=== PATIENT | male | born 1985 | race Two or more races ===

== ENCOUNTER 2023-02-05 12:13 | Emergency (ER) | payer OTHER, SELFPAY ==
[2023-02-05 12:26] VITALS: BP 165/80; BP 173/109; PULSE 78; PULSE 82; RESP 16; TEMP 36.7; O2SAT 100; O2SAT 99; BMI 32.3
[2023-02-05] MEDS: Ondansetron ODT 4 MG TAB.RAPDIS TRANSLINGU ×2 (12:42→16:28)
--- NOTE | 2023-02-05 12:45 | PC.NURSE ---
pt medicated per MAR
[2023-02-05 13:00] LABS: COVID-19 Test Negative (Negative); IDNOW Serial# 58CA691E
[2023-02-05 13:13] LABS: IDNOW Serial# BCCEAD1C; Influenza A Negative (Negative); Influenza B2 Negative (Negative)
--- NOTE | 2023-02-05 13:20 | ED_ITS ---
HPI - Abdominal Pain General Chief Complaint: Abdominal Pain Stated Complaint: ABD PAIN,NAUSEA,VOMITING PER EMS Time Seen by Provider: 02/05/23 12:27 Source: patient and pier hand helper Mode of arrival: EMS History of Present Illness HPI narrative: 37-year-old male who presents with having eaten a lot of food last night and then states that this morning he woke up with nausea and vomiting and not feeling well, he reports snorting fentanyl yesterday and using a bag of heroin today both by snorting. He otherwise denies fevers or chills and denies any dysuria. Patient denies any SI or HI and declines any detox at this time. Related Data Allergies Allergy/AdvReac Type Severity Reaction Status Date / Time aspirin [ASA] Allergy Itching Verified 02/05/23 12:34 Review of Systems Review of Systems Pertinent positives and negatives as stated in HPI PMFSH Past Medical History Source: nursing notes reviewed Social History Social History Unable to assess alcohol history related to: Unable to respond Use of substances other than those prescribed or required for medical reasons: Unable to respond Advance Directives: No Physical Exam ED Vital Signs: Vital Signs - 24 hr 02/05/23 12:26 Temperature 98.1 F Pulse Rate 78 Respiratory Rate 16 Blood Pressure 165/80 H Pulse Oximetry 99 Oxygen Delivery Method Room Air BMI result Body Mass Index 32.3 VITAL SIGNS: Reviewed. GENERAL: Well developed, well nourished, in no acute distress. HEAD: Normocephalic/atraumatic EYES: PERRLA, EOMI EARS: Ext canals without abnormality, TMs non-bulging and non-erythematous NOSE: Nares patent bilateral OROPHARYNX: no oral lesions noted, posterior pharynx clear and non-erythematous without noted tonsillar enlargement/erythema/exudates NECK: Supple, no adenopathy LUNGS: Normal breath sounds. No adventitious sounds or accessory muscle use. SpO2<99> CARDIOVASCULAR: Regular rate and rhythm without noted murmurs ABDOMEN: Soft, non-tender, non-distended with bowel sounds. MUSCULOSKELETAL: No tenderness, deformities, or effusions noted on gross inspection. EXTREMITIES: No cyanosis, clubbing or edema. SKIN: Inspection of the skin reveals no rashes NEUROLOGIC: Alert and oriented x 4. Strength and sensation to light touch were grossly intact x 4. Medical Decision Making Medical Decision Making [facility] Narrative: 37-year-old male with history and clinical presentation, DDX: Viral syndrome, no clinical suspicion or cholecystitis/pancreatitis. I reviewed all investigations and COVID-19 and influenza are negative. Patient does not wish to provide urinalysis, he was provided with Tylenol and Zofran and his had oral intake without nausea or vomiting. On re-evaluation patient reports he is feeling much better now has otherwise discharged home in stable condition. He was discharged with home Narcan. Differential Diagnosis Differential Diagnoses: The differential diagnosis associated with the presentation includes Please see the discussion above Admission/Observation Consideration of admission/observation: Escalation of care including admission/observation considered Please see the discussion above Lab Data [facility] Lab Attestation statement: I reviewed the patient's lab results. Please see the discussion above Labs: Lab Results 02/05/23 Range/Units 12:42 COVID-19 (FREIDA) Negative (Negative) COVID-19 Clin Com See Note Influenza Type A (SULEMA) Negative (Negative) Influenza Type B (SULEMA) Negative (Negative) Influenza A & B Note See Note Medications Administered Discontinued Medications Generic Name Dose Route Start Last Admin Trade Name Freq PRN Reason Stop Dose Admin Acetaminophen 975 mg 02/05/23 13:29 02/05/23 14:09 Acetaminophen 325 Mg Tablet PO 02/05/23 13:30 975 mg ONCE ONE Administration Ondansetron HCl 4 mg 02/05/23 12:28 02/05/23 12:42 Ondansetron Odt 4 Mg Tab.Rapdis TRANSLINGU 02/05/23 12:29 4 mg ONCE ONE Administration Discharge Plan Discharge Clinical Impression: Viral syndrome, Polysubstance use disorder Patient Disposition: Home, Self-Care Instructions: Viral Syndrome (ED), Polysubstance Abuse (ED) Additional Instructions: 1. Reanudar todos los medicamentos caseros seg?n lo recetado. Regrese a la adis de emergencias si los s?ntomas empeoran. 1. Resume all home medications as prescribed. Return to the ER for any worsening symptoms. Print Language: Korean
--- NOTE | 2023-02-05 13:23 | PC.NURSE ---
pt tolerating po fluids. Dr. manley
[2023-02-05] MEDS: Acetaminophen 325 MG TABLET 975 MG PO (14:09)
--- NOTE | 2023-02-05 14:11 | PC.NURSE ---
pt medicated per, tolerating po fluids
[2023-02-05 16:00] VITALS: BP 125/77; PULSE 78; RESP 16; TEMP 37; O2SAT 98
[2023-02-05] MEDS: Naloxone HCl Nasal TAKE HOME 4 MG SPRAY 8 MG NOSTRILALT (16:28)
== END 2023-02-05 16:35 | disposition home or self-care (01) ==
PROVIDERS: Emergency Provider Student in an Organized Health Care Education/Training Program
DX: B34.9 Viral infection, unspecified (principal); F19.90 Other psychoactive substance use, unspecified, uncomplicated; Z11.52 Encounter for screening for COVID-19
CPT/HCPCS: 87502; 87635; 99283; 99284

== ENCOUNTER 2024-05-08 16:19 | Emergency (ER) | payer OTHER, SELFPAY ==
--- NOTE | 2024-05-08 16:22 | ECG_ITS ---
Test Reason : CP Blood Pressure : */* mmHG Vent. Rate : 89 BPM Atrial Rate : 89 BPM P-R Int : 130 ms QRS Dur : 86 ms QT Int : 372 ms P-R-T Axes : 39 22 37 degrees QTcB Int : 452 ms Normal sinus rhythm Normal ECG No previous ECGs available Referred By: Generic ED Physician Electronically Signed By: MAURA CHENG MD
[2024-05-08 16:26] VITALS: BP 106/65; BP 128/76; PULSE 92; PULSE 93; RESP 16; TEMP 37; O2SAT 98; O2SAT 99; BMI 34.2
--- NOTE | 2024-05-08 16:40 | PC.NURSE ---
Pt coming from PD, while awaiting bail inventory clerk to arrive when he was in a call he started to panic, complaints of SOB/CP. Pd at bedside reporting they were question cocaine as he was surrounded by [employer]. Pt not denying. Pt now denies any CP/SOB. Refusing to let staff do any patient care. Pt alerted he needed to let us do at least an EKG and vitals.
--- NOTE | 2024-05-08 17:12 | ED_ITS ---
HPI - Chest Pain General Chief Complaint: Chest Pain Stated Complaint: chest pain in pd custody, drug use Time Seen by Provider: 05/08/24 17:06 Source: patient, EMS and police Mode of arrival: EMS Limitations: no limitations History of Present Illness ED Provider: Dr. Veronika Mejia HPI narrative: Patient comes to the emergency room via ambulance and in police custody. Patient reports that earlier today he had an argument with his , PD was called. Patient took him to the station. Patient denies any incidences of physical assault. Patient states that he is claustrophobic, being in the cell patient started becoming more anxious, had a panic attack and chest pain. The patient admits to using cocaine. Patient states that this time he feels better, has no chest pain shortness of breath or anxiety. Related Data Allergies Allergy/AdvReac Type Severity Reaction Status Date / Time aspirin [ASA] Allergy Itching Verified 05/08/24 16:31 Review of Systems Review of Systems: Constitutional : No Weight loss, No Fever, No Chills, No Night Sweats, No Fatigue, No Malaise ENT/Mouth : No Hearing loss, No Ear Pain, No Nasal Congestion, No Sinus Pain, No Hoarseness, No sore throat, No Rhinorrhea, No Swallowing Difficulty Eyes: No Eye Pain, No Swelling, No Redness, No Foreign Body, No Discharge, No Vision Changes Cardiovascular : Complaining of chest pain during panic attack, resolved at this time. No SOB, No Dyspnea on Exertion, No Orthopnea, No Edema, No Palpitations Respiratory : No Cough, No Sputum, No Wheezing, No Smoke Exposure, No Dyspnea Gastrointestinal : No Nausea, No Vomiting, No Diarrhea, No Constipation, No ab dominal Pain, No Hematochezia, No Melena Genitourinary : no irregular bleeding, No Dysuria, No Urinary Frequency, No Hematuria, No Urinary Incontinence, No Urgency, No Flank Pain, No Urinary Flow Changes, No Hesitancy Musculoskeletal : No joint pain, No Myalgias, No Joint Swelling Skin : No Skin Lesions, No rash Neuro : No Weakness, No Numbness, No Paresthesias, No Loss of Consciousness, No Dizziness, No Headache Psych : Admits panic attack, No Depression, No SI/HI/AH/VH, No Social Issues, Heme/Lymph: No Bruising, No Bleeding,No Lymphadenopathy Endocrine : No Polyuria, No Polydipsia, No Temperature Intolerance [facility] Social History Social History Unable to assess alcohol history related to: Unable to respond Smoked in Last 30 Days: Yes Use of substances other than those prescribed or required for medical reasons: Refusing to respond Advance Directives: No Advance Directives Information Provided: No Physical Exam Vital Signs: Vital Signs: Last Vital Signs Temp 98.6 F 05/08/24 16:26 Pulse 92 05/08/24 16:26 Resp 16 05/08/24 16:26 BP 128/76 05/08/24 16:26 Pulse Ox 98 05/08/24 16:26 O2 Del Method Room Air 05/08/24 16:26 BMI result Body Mass Index 34.2 Const: Other: Appearance: Alert. Oriented X3. No acute distress. Eyes: Pupils equal, round and reactive to light. ENT: Pharynx normal. Neck: Normal inspection. Neck supple. No lymph nodes noted. No crepitus CVS: Normal heart rate and rhythm. Pulses normal. Normal S1 and S2 Respiratory: No respiratory distress. Breath sounds normal. No Wheezing. No rales Abdomen: Soft and nontender. No rigidity. No distention. Skin: Skin warm and dry. Normal skin color. Normal skin turgor. Extremities: No lower extremity edema. No Lacerations. No Rash Neuro: Oriented X 3. No motor deficit. No sensory deficit. Moving all extremities. No slurred speech. CN 2 through 12 grossly intact Psych: calm, cooperative, normal affect Medical Decision Making Medical Decision Making [facility] Narrative: My interpretation of EKG: Normal sinus rhythm, heart rate 89, no ST segment depression or elevation, no T-wave inversion, QTC 452 Patient states that he feels well, denies any chest pain shortness of breath or anxiety, states that he does not want any further workup. Per patient's request, patient being discharged without any further workup. No concerns based on patient's electrocardiogram. Patient being discharged under police custody Discharge Plan Discharge Clinical Impression: Anxiety Patient Disposition: Home, Self-Care Instructions: Anxiety (ED) Additional Instructions: Please follow-up with your primary care physician tomorrow. If you have any worsening or new symptoms, please return to the emergency room or call 911 Print Language: Sierra Leonean
[2024-05-08 17:54] VITALS: BP 128/76; PULSE 92; RESP 16; TEMP 37; O2SAT 98
--- NOTE | 2024-05-08 17:55 | PC.NURSE ---
Refused all care, released back in PD custody.
== END 2024-05-08 17:55 | disposition home or self-care (01) ==
PROVIDERS: Emergency Provider Emergency Medicine; PCP Nurse Practitioner Family
DX: F41.9 Anxiety disorder, unspecified (principal)
CPT/HCPCS: 93005; 99283; 99284

== ENCOUNTER → 2024-05-08 16:22 | Outpatient (BNV) | payer OTHER, SELFPAY | PROVIDERS: Emergency Provider Emergency Medicine; PCP Nurse Practitioner Family; Visit Provider Internal Medicine Cardiovascular Disease | DX: R07.9 Chest pain, unspecified (principal) | CPT/HCPCS: 93010 ==

== ENCOUNTER 2024-07-16 04:41 | Emergency (ER) | payer OTHER, SELFPAY ==
[2024-07-16 04:46] VITALS: BP 152/65; PULSE 80; RESP 24; TEMP 37.1; O2SAT 97; BMI 36.9
[2024-07-16 05:11] LABS: MANUAL DIFF FLAG NO
[2024-07-16 05:12] LABS: Basophils Percent Auto 0.2 % (0-2); Eosinophils Percent Auto 0.3 % (0-4); Hematocrit 42.2 % (42.0-52.0); Hemoglobin 14.3 g/dl (14.0-18.0); Imm Gran Abs Auto 0.03 X10*3/uL (0.00-0.03); Imm Gran Pct Auto 0.5 % (0.0-0.4); Lymphocytes Absolute Auto 0.9 X10*3/uL (1.2-4.9); Lymphocytes Percent Auto 14.7 % (20-40); Mean Corpuscular HGB Conc 33.9 g/dl (31.0-36.0); Mean Corpuscular Hemoglobin 26.2 pg (27.0-33.0); Mean Corpuscular Volume 77.4 fL (80.0-98.0); Mean Platelet Volume 9.4 fL (9.4-12.4); Neutrophils Absolute Auto 3.9 x10*3/uL (2.0-8.3); Neutrophils Percent Auto 67.3 % (45-73); Platelet Count 196 X10*3/uL (160-400); Red Blood Count 5.45 X10*6/uL (4.60-5.80); Red Cell Distribution Width 14.5 % (11.0-16.0); White Blood Count 5.8 X10*3/uL (4.8-10.8)
[2024-07-16] MEDS: ondansetron HCL 4 MG/2 ML VIAL IVPUSH ×2 (05:17→08:41)
[2024-07-16 05:44] LABS: Alanine Aminotransferase 14 U/L (0-40); Albumin Level 4.5 g/dL (3.5-5.0); Alkaline Phosphatase 87 U/L (39-117); Anion Gap 17 (12-20); Aspartate Amino Transferase 21 U/L (5-37); Bilirubin Total 0.8 mg/dL (0.0-1.0); Blood Urea Nitrogen 11 mg/dL (9-16); Calcium 9.4 mg/dL (8.4-10.2); Carbon Dioxide 22 mmol/L (22-29); Chloride 104 mmol/L (96-108); Estimated Glomerular Filt Rate > 60; Glucose Random 106 mg/dL (60-115); Potassium 3.5 mmol/L (3.3-5.1); Sodium 139 mmol/L (135-145); Total Protein 7.6 g/dL (6.5-8.0)
--- NOTE | 2024-07-16 07:51 | ED.NAVMDI ---
HPI - Nausea/Vomiting/Diarrhea General Chief complaint: Nausea/Vomiting/Diarrhea Stated complaint: nauseaous Time Seen by Provider: 07/16/24 07:22 Source: patient and human factors engineer Mode of arrival: ambulatory Limitations: no limitations History of Present Illness ED Provider: HPI Narrative: Georgian-speaking patient, human factors engineer was utilized presenting with report of nausea and vomiting, smokes marijuana, did not have a diarrhea, denies abdominal pain. No chest pain or shortness of breath reported. No fevers or chills. Related Data Previous Rx's ?Medication ?Instructions ?Recorded famotidine 20 mg tablet 20 mg PO BEDTIME 30 days #30 tabs 07/16/24 ondansetron 4 mg disintegrating 4 mg PO Q8H PRN nausea and 07/16/24 tablet vomiting #4 tabs Allergies Allergy/AdvReac Type Severity Reaction Status Date / Time aspirin [ASA] Allergy Itching Verified 07/16/24 04:48 Review of Systems Constitutional: Constitutional: Reports as per [facility] Social History Social History Unable to assess alcohol history related to: Unable to respond Smoked in Last 30 Days: Yes Use of substances other than those prescribed or required for medical reasons: No Any prior treatment program specific to substance use: Yes Advance Directives: No Do you have a plan to hurt others: No Plan Physical Exam Vital Signs: Vital Signs: Last Vital Signs Temp 98.7 F 07/16/24 04:46 Pulse 80 07/16/24 04:46 Resp 24 H 07/16/24 04:46 BP 152/65 H 07/16/24 04:46 Pulse Ox 97 07/16/24 04:46 O2 Del Method Room Air 07/16/24 04:46 BMI result Body Mass Index 36.9 Const: Other: Gen: ?Overall well-appearing patient HEENT: PERRLA, EOMI, MMM, no scleral icterus Neck: Supple, no LAD CV: RRR, no obvious murmurs appreciated Resp: ?No wheezing rales rhonchi no stridor moving air well Abd: ?Bowel sounds are present, no tenderness no rebound no rigidity MSK: FROM, strength 5/5 all extremities Skin: Warm, dry, intact, no jaundice Neuro: ?Alert and oriented x3, moving upper and lower extremities symmetrically, no obvious facial asymmetry noted Medications Administered Discontinued Medications Generic Name Dose Route Start Last Admin Trade Name Darius PRN Reason Stop Dose Admin Ondansetron HCl 4 mg 07/16/24 05:07 07/16/24 05:17 Ondansetron Hcl 4 Mg/2 Ml Vial IVPUSH 07/16/24 05:08 4 mg ONCE ONE Administration Medical Decision Making Medical Decision Making [facility] Narrative: Overall well-appearing, tolerating p.o., blood work reassuring no evidence for dehydration, he is not having any chest pain or dyspnea to suspect ACS, no decreased bowel sounds to suspect SBO, and the blood work does not support my other considerations for further workup, did not feel further imaging such as ultrasound or CT of the abdomen pelvis is indicated. Anticipating discharge. Differential Diagnosis Differential Diagnoses: The differential diagnosis associated with the presentation includes Cholecystitis, pancreatitis, hepatitis, gastritis, cholangitis, choledocholithiasis, SBO, ACS Lab Data 07/16/24 05:07 07/16/24 05:26 Labs: Lab Results 07/16/24 07/16/24 Range/Units 05:07 05:26 WBC 5.8 (4.8-10.8) X10*3/uL RBC 5.45 (4.60-5.80) X10*6/uL Hgb 14.3 (14.0-18.0) g/dl Hct 42.2 (42.0-52.0) % MCV 77.4 L (80.0-98.0) fL MCH 26.2 L (27.0-33.0) pg MCHC 33.9 (31.0-36.0) g/dl RDW 14.5 (11.0-16.0) % Plt Count 196 (160-400) X10*3/uL MPV 9.4 (9.4-12.4) fL Immature Gran % (Auto) 0.5 H (0.0-0.4) % Neut % (Auto) 67.3 (45-73) % Lymph % (Auto) 14.7 L (20-40) % [place] % (Auto) 17.0 H (2-11) % Eos % (Auto) 0.3 (0-4) % Baso % (Auto) 0.2 (0-2) % Lymph # (Auto) 0.9 L (1.2-4.9) X10*3/uL [place] # (Auto) 1.0 (0.1-1.2) X10*3/uL Eos # (Auto) 0.0 (0.0-0.4) X10*3/uL Baso # (Auto) 0.0 (0.0-0.2) X10*3/uL Abs Immat Gran (auto) 0.03 (0.00-0.03) X10*3/uL Absolute Neuts (auto) 3.9 (2.0-8.3) x10*3/uL Absolute Nucleated RBC 0.000 (0.0-0.012) X10*3/uL Nucleated RBC % (auto) 0.0 (0.0-0.2) /100WBC Sodium 139 (135-145) mmol/L Potassium 3.5 (3.3-5.1) mmol/L Chloride 104 (96-108) mmol/L Carbon Dioxide 22 (22-29) mmol/L Anion Gap 17 (12-20) BUN 11 (9-16) mg/dL Creatinine 0.86 (0.5-1.4) mg/dL Estim Creat Clear Calc 140.0 Estimated GFR > 60 Random Glucose 106 (60-115) mg/dL Calcium 9.4 (8.4-10.2) mg/dL Total Bilirubin 0.8 (0.0-1.0) mg/dL AST 21 (5-37) U/L ALT 14 (0-40) U/L Alkaline Phosphatase 87 (39-117) U/L Total Protein 7.6 (6.5-8.0) g/dL Albumin 4.5 (3.5-5.0) g/dL Discharge Plan Discharge Clinical Impression: Nausea & vomiting Patient Disposition: Home, Self-Care Instructions: Acute Nausea and Vomiting (ED) Additional Instructions: Your blood work, physical examination, vital signs reassuring, take famotidine 20 mg before bedtime, and Zofran as needed for nausea and vomiting, make sure to abstain from any alcohol, spicy or fatty foods, follow up with the PCP and other issues concerns come back to the ER. Prescriptions: New famotidine 20 mg tablet 20 mg PO BEDTIME 30 Days Qty: 30 0RF ondansetron 4 mg tablet,disintegrating 4 mg PO Q8H PRN (Reason: nausea and vomiting) Qty: 4 0RF Print Language: Georgian
[2024-07-16 08:06] VITALS: BP 136/67; PULSE 83; RESP 20; TEMP 36.8; O2SAT 98
[2024-07-16 08:28] VITALS: BP 136/67; PULSE 83; RESP 20; TEMP 36.8; O2SAT 98
[2024-07-16] MEDS: Magnesium Hydrox/Alum Hydrox 30 ML ORAL.SUSP PO (08:41)
[2024-07-16] MEDS: Famotidine 20 MG TABLET PO (08:41)
== END 2024-07-16 08:54 | disposition home or self-care (01) ==
PROVIDERS: Emergency Provider Emergency Medicine; PCP Nurse Practitioner Family
DX: R11.2 Nausea with vomiting, unspecified (principal)
CPT/HCPCS: 36415; 80053; 85025; 96374; 96375; 99284; J2405

== ENCOUNTER 2024-07-18 10:20 | Emergency (ER) | payer OTHER, SELFPAY ==
--- NOTE | ~2024-07-18 | XR_ITS ---
EXAMINATION: XR CHEST 2 VIEWS HISTORY: vomiting, cough COMPARISON: There are no prior studies available for comparison. FINDINGS: PA and lateral views of the chest are submitted. The lungs are expanded and clear. There is no pleural effusion, pneumothorax, or pulmonary vascular congestion. The heart is normal in size. The bones are intact. XR/XR chest 2V IMPRESSION: Normal examination of the chest. Electronically signed by: Elliot Kumar MD 07/18/2024 12:11 PM EDT
[2024-07-18 10:32] VITALS: BP 128/90; PULSE 79; RESP 18; TEMP 36.9; O2SAT 96; BMI 38.6
--- NOTE | 2024-07-18 11:30 | ED.GENADULT ---
HPI - General Adult General Chief complaint: General Medical Stated complaint: Headache Weakness Etc Related Data Previous Rx's ?Medication ?Instructions ?Recorded famotidine 20 mg tablet 20 mg PO BEDTIME 30 days #30 tabs 07/16/24 ondansetron 4 mg disintegrating 4 mg PO Q8H PRN nausea and 07/16/24 tablet vomiting #4 tabs Allergies Allergy/AdvReac Type Severity Reaction Status Date / Time aspirin [ASA] Allergy Itching Verified 07/18/24 10:38 [facility] Social History Social History Unable to assess alcohol history related to: Unable to respond Advance Directives: No Advance Directives Information Provided: No Do you have a plan to hurt others: No Plan Physical Exam ED Vital Signs: Vital Signs - 24 hr 07/18/24 10:32 07/18/24 13:52 Temperature 98.4 F 98.4 F Pulse Rate 79 79 Respiratory Rate 18 18 Blood Pressure 128/90 H 128/90 H Pulse Oximetry 96 96 Oxygen Delivery Method Room Air Room Air BMI result Body Mass Index 38.6 Course Course Course Narrative: 07/18/24 1131 CADENCE [place] This is a Rapid Medical Examination (RME) performed by Sergio Leiva PA-C in triage. Full HPI, ROS, assessment and treatment plan per primary provider in the Main ED. Hx: 38 yo M here for eval of epigastric abd pain, N/V/D, cough, generalized weakness, dec PO intake x3 days. eval at our facility a few days ago w/ unremarkable w/u (no imaging). d/c home w/ zofran - no relief. Plan: labs, viral swabs, CXR Reevaluation(s) Reevaluation #1: Patient left the emergency department before myself or any of the other clinicians could review or explain physical exam findings, test results, need or lack there of for additional testing, treatment options, or a treatment plan. Discharge Plan Discharge Clinical Impression: Abdominal pain Patient Disposition: Left W/O Completing Treatment Prescriptions: No Action famotidine 20 mg tablet 20 mg PO BEDTIME 30 Days Qty: 30 0RF ondansetron 4 mg tablet,disintegrating 4 mg PO Q8H PRN (Reason: nausea and vomiting) Qty: 4 0RF Interventions: ED Discharge Assessment Last Done: 07/18/24 13:52 Discharge Date/Time: 07/18/24 13:52
--- OUTSIDE RECORDS SUMMARY | 2024-07-18 13:43 | XMS_ITS | Patient Health Record ---
Author Organization [facility] Address [address] [place] [address] [phone] Care Team Providers Care Soil Field Technician Name Role Phone Hieu Carmichael Primary Care Provider [phone] [facility], [facility] Unavailable [phone] Reason For Referral No Information Plan Of Treatment No Information
[2024-07-18 13:52] VITALS: BP 128/90; PULSE 79; RESP 18; TEMP 36.9; O2SAT 96
== END 2024-07-18 13:52 | disposition left against medical advice (07) ==
PROVIDERS: Emergency Provider Emergency Medicine; PCP Nurse Practitioner Family
DX: R51.9 Headache, unspecified (principal); R53.1 Weakness; R10.2 Pelvic and perineal pain
CPT/HCPCS: 71046; 99282; 99283

== ENCOUNTER → 2024-07-18 11:30 | Outpatient (BNV) | payer OTHER, SELFPAY | PROVIDERS: PCP Nurse Practitioner Family; Visit Provider Radiology Diagnostic Radiology | DX: R05.9 Cough, unspecified (principal); R11.10 Vomiting, unspecified | CPT/HCPCS: 71046 ==

== ENCOUNTER 2024-07-22 09:32 | Emergency (ER) | payer OTHER, SELFPAY ==
[2024-07-22 09:50] VITALS: BP 142/98; PULSE 91; O2SAT 98
[2024-07-22 10:00] VITALS: BP 120/70; PULSE 69; RESP 16; TEMP 36.8; O2SAT 96
--- NOTE | 2024-07-22 10:21 | ED.NAVMDI ---
HPI - Nausea/Vomiting/Diarrhea General Chief complaint: Nausea/Vomiting/Diarrhea Stated complaint: VOMITING,FROM METHADONE CLINIC,SEEN 3 DAYS AGO Time Seen by Provider: 07/22/24 09:58 Source: patient, EMS, RN notes reviewed and old records reviewed Mode of arrival: EMS History of Present Illness ED Provider: Claire Escobar PA-C HPI Narrative: 38-year-old [place] Citizen-speaking male currently on methadone, presenting to the ED, methadone clinic complaining of persistent nausea and nonbloody emesis x this morning. Patient admits he was seen and treated in our ED a few days ago for similar symptoms, prescribed antinausea medication with relief however states was only given 4 pills / ran out, & the symptoms returned. Reports increasing life stressors, states he is currently on the street. Denies SI/HI. Concerned stress/anxiety is causing symptoms. Admits he does have a therapist,but does not currently take any outpatient psychiatric medications however used to be prescribed some. Last dose methadone yesterday per patient. Denies abdominal pain, flank pain, diarrhea/constipation, dysuria/hematuria, fever. Denies EtOH or drug use Related Data Previous Rx's ?Medication ?Instructions ?Recorded famotidine 20 mg tablet 20 mg PO BEDTIME 30 days #30 tabs 07/16/24 ondansetron 4 mg disintegrating 4 mg PO Q8H PRN nausea and 07/16/24 tablet vomiting #4 tabs aluminum-mag hydroxide-simethicone 5 ml PO 5XD PRN dyspepsia #30 mL 07/22/24 200 mg-200 mg-20 mg/5 mL oral susp (Maalox Advanced) famotidine 20 mg tablet (Pepcid) 20 mg PO DAILY #14 tabs 07/22/24 ondansetron 4 mg disintegrating 4 mg PO Q8H PRN nausea and 07/22/24 tablet vomiting #10 tabs Allergies Allergy/AdvReac Type Severity Reaction Status Date / Time aspirin [ASA] Allergy Itching Verified 07/22/24 10:24 Penicillins Allergy Unknown Verified 07/22/24 10:24 Review of Systems Review of Systems: Yes all other systems are reviewed and are negative Constitutional: Constitutional: Reports as per HPI [facility] Past Medical History Attestation statement: The following information was validated with the patient. Source: old records reviewed Social History Social History Unable to assess alcohol history related to: Unable to respond Advance Directives: No Advance Directives Information Provided: No Physical Exam Vital Signs: Vital Signs: Last Vital Signs Temp 98.0 F 07/22/24 15:07 Pulse 82 07/22/24 15:07 Resp 18 07/22/24 15:07 BP 112/64 07/22/24 15:07 Pulse Ox 97 07/22/24 15:07 O2 Del Method Room Air 07/22/24 14:44 BMI result Body Mass Index 42.3 Const: General: cooperative, healthy appearing and no acute distress Orientation/consciousness: patient oriented x3 Limitations: no limitations HEENT: Head: Yes normal to inspection and Yes atraumatic Ears: hearing grossly normal bilaterally General nose exam: Normal external nose present Face and sinus: Yes normal facial exam Eyes: General: appearance normal, both eyes and all related structures EOM: EOMs intact bilaterally Neck: Neck: Yes normal visual inspection and Yes no meningeal signs Resp: Effort & Inspection: normal respiratory effort and no respiratory distress Cardio: Rate: regular rate GI: Inspection: Yes normal to inspection Palpation (GI): Soft to palpation, nontender, no guarding and not rigid Skin: Rashes: no rashes Wounds: no wounds Neuro: General: patient oriented x3, tone normal and no meningeal signs Cranial nerves: Yes CN's II-XII intact bilaterally Gait exam (Neuro): Normal gait present Extrem: General: Yes normal to inspection Course Course Course Narrative: -[id number]-- Labs reassuring. Mild elevation in AST / ALT. UA with trace ketones. - Tox screen positive for THC and methadone - patient is tolerating p.o. in the ED without any episodes of emesis since arrival. Methadone was verified, will be dose of methadone today in the ED and provided with last dose letter. Patient feels comfortable for discharge home at this time with antiemetic and close GI/ PCP follow-up Results discussed with patient including worrisome signs and symptoms and strict return precautions, and when to return to the emergency department. They verbalized understanding and feel safe for discharge at this time. Medications Administered Discontinued Medications Generic Name Dose Route Start Last Admin Trade Name Freq PRN Reason Stop Dose Admin Al Hydroxide/Mg Hydroxide 30 ml 07/22/24 14:11 07/22/24 14:57 Magnesium Hydrox/Alum Hydrox 30 Ml Oral.Susp PO 07/22/24 14:12 30 ml ONCE ONE Administration Sodium Chloride 1,000 mls @ 999 mls/hr 07/22/24 10:30 07/22/24 14:57 Ns IV 07/22/24 11:30 Infused .Q1H1M SIENNA Infusion Methadone HCl 103 mg 07/22/24 13:40 07/22/24 14:55 Methadone Hcl 20 Mg/2 Ml Oral.Conc PO 07/22/24 13:41 103 mg ONCE ONE Administration Ondansetron HCl 4 mg 07/22/24 10:16 07/22/24 11:24 Ondansetron Hcl 4 Mg/2 Ml Vial IVPUSH 07/22/24 10:17 4 mg ONCE ONE Administration Medical Decision Making Medical Decision Making [facility] Narrative: 38-year-old [place] Citizen-speaking male currently on methadone, presenting to the ED, methadone clinic complaining of persistent nausea and nonbloody emesis x this morning. On exam vital signs stable, NAD, nontoxic appearing, abdomen is soft and nontender, no CVAT. Patient was seen and treated in our ED on 07/16/2024 for similar symptoms had negative workup, prescribed Zofran outpatient, also presented on 07/18 however LWCT. Concern for anxiety/stress induced nausea/vomiting. Rule out dehydration/metabolic abnormalities. Low suspicion for acute pancreatitis/cholecystitis/lithiasis, appendicitis or diverticulitis without tenderness on exam. Lower suspicion for renal stones/pyelo or UTI. Plan: Labs, tox screen, UA, IVF, antiemetic, p.o. trial Please refer to course for remaining clinical decision making, interpretation of labs/imaging results, and discussions with consultants and/or family members. Differential Diagnosis Differential Diagnoses: The differential diagnosis associated with the presentation includes As above Admission/Observation Consideration of admission/observation: Escalation of care including admission/observation considered Lab Data [facility] Lab Attestation statement: I reviewed the patient's lab results. 07/22/24 10:41 07/22/24 10:41 Labs: Lab Results 07/22/24 07/22/24 07/22/24 Range/Units 10:41 10:41 10:41 WBC 6.8 (4.8-10.8) X10*3/uL RBC 5.35 (4.60-5.80) X10*6/uL Hgb 13.8 L (14.0-18.0) g/dl Hct 41.8 L (42.0-52.0) % MCV 78.1 L (80.0-98.0) fL MCH 25.8 L (27.0-33.0) pg MCHC 33.0 (31.0-36.0) g/dl RDW 14.1 (11.0-16.0) % Plt Count 210 (160-400) X10*3/uL MPV 8.9 L (9.4-12.4) fL Immature Gran % (Auto) 0.4 (0.0-0.4) % Neut % (Auto) 70.1 (45-73) % Lymph % (Auto) 21.0 (20-40) % [place] % (Auto) 7.5 (2-11) % Eos % (Auto) 0.7 (0-4) % Baso % (Auto) 0.3 (0-2) % Lymph # (Auto) 1.4 (1.2-4.9) X10*3/uL [place] # (Auto) 0.5 (0.1-1.2) X10*3/uL Eos # (Auto) 0.1 (0.0-0.4) X10*3/uL Baso # (Auto) 0.0 (0.0-0.2) X10*3/uL Abs Immat Gran (auto) 0.03 (0.00-0.03) X10*3/uL Absolute Neuts (auto) 4.8 (2.0-8.3) x10*3/uL Absolute Nucleated RBC 0.000 (0.0-0.012) X10*3/uL Nucleated RBC % (auto) 0.0 (0.0-0.2) /100WBC Sodium 141 (135-145) mmol/L Potassium 3.9 (3.3-5.1) mmol/L Chloride 105 (96-108) mmol/L Carbon Dioxide 28 (22-29) mmol/L Anion Gap 12 (12-20) BUN 10 (9-16) mg/dL Creatinine 0.77 (0.5-1.4) mg/dL Estim Creat Clear Calc 163.0 Estimated GFR > 60 Random Glucose 100 (60-115) mg/dL Calcium 9.5 (8.4-10.2) mg/dL Magnesium 2.1 (1.6-2.6) mg/dL Total Bilirubin 0.4 0.5 (0.0-1.0) mg/dL Direct Bilirubin 0.2 (0.0-0.5) mg/dL AST 48 H 46 H (5-37) U/L ALT 76 H (0-40) U/L Alkaline Phosphatase (39-117) U/L Total Protein (6.5-8.0) g/dL Albumin (3.5-5.0) g/dL Urine Color Urine Appearance Urine pH (5.0-9.0) Ur Specific [place] (1.005-1.025) Urine Protein (Neg-Trace) mg/dL Urine Glucose (UA) (Negative) mg/dL Urine Ketones (Negative) mg/dL Urine Blood (Negative) Urine Nitrite (Negative) Ur Leukocyte Esterase (Negative) Urine Opiates Screen (Not Detect) Ur Buprenorphine Scrn (Not Detect) ng/mL Ur Oxycodone Screen (Not Detect) ng/mL Urine Methadone Screen (Not Detect) ng/mL Urine Fentanyl Screen (Not Detect) Ur Barbiturates Screen (Not Detect) Ur Phencyclidine Scrn (Not Detect) Ur Amphetamines Screen (Not Detect) U Benzodiazepines Scrn (Not Detect) Urine Cocaine Screen (Not Detect) U Marijuana (THC) Screen (Not Detect) Ethyl Alcohol mg/dL 07/22/24 07/22/24 07/22/24 Range/Units 10:41 10:41 10:41 WBC (4.8-10.8) X10*3/uL RBC (4.60-5.80) X10*6/uL Hgb (14.0-18.0) g/dl Hct (42.0-52.0) % MCV (80.0-98.0) fL MCH (27.0-33.0) pg MCHC (31.0-36.0) g/dl RDW (11.0-16.0) % Plt Count (160-400) X10*3/uL MPV (9.4-12.4) fL Immature Gran % (Auto) (0.0-0.4) % Neut % (Auto) (45-73) % Lymph % (Auto) (20-40) % [place] % (Auto) (2-11) % Eos % (Auto) (0-4) % Baso % (Auto) (0-2) % Lymph # (Auto) (1.2-4.9) X10*3/uL [place] # (Auto) (0.1-1.2) X10*3/uL Eos # (Auto) (0.0-0.4) X10*3/uL Baso # (Auto) (0.0-0.2) X10*3/uL Abs Immat Gran (auto) (0.00-0.03) X10*3/uL Absolute Neuts (auto) (2.0-8.3) x10*3/uL Absolute Nucleated RBC (0.0-0.012) X10*3/uL Nucleated RBC % (auto) (0.0-0.2) /100WBC Sodium (135-145) mmol/L Potassium (3.3-5.1) mmol/L Chloride (96-108) mmol/L Carbon Dioxide (22-29) mmol/L Anion Gap (12-20) BUN (9-16) mg/dL Creatinine (0.5-1.4) mg/dL Estim Creat Clear Calc Estimated GFR Random Glucose (60-115) mg/dL Calcium (8.4-10.2) mg/dL Magnesium (1.6-2.6) mg/dL Total Bilirubin (0.0-1.0) mg/dL Direct Bilirubin (0.0-0.5) mg/dL AST (5-37) U/L ALT 76 H (0-40) U/L Alkaline Phosphatase 79 79 (39-117) U/L Total Protein 7.2 7.1 (6.5-8.0) g/dL Albumin 4.4 (3.5-5.0) g/dL Urine Color Urine Appearance Urine pH (5.0-9.0) Ur Specific [place] (1.005-1.025) Urine Protein (Neg-Trace) mg/dL Urine Glucose (UA) (Negative) mg/dL Urine Ketones (Negative) mg/dL Urine Blood (Negative) Urine Nitrite (Negative) Ur Leukocyte Esterase (Negative) Urine Opiates Screen (Not Detect) Ur Buprenorphine Scrn (Not Detect) ng/mL Ur Oxycodone Screen (Not Detect) ng/mL Urine Methadone Screen (Not Detect) ng/mL Urine Fentanyl Screen (Not Detect) Ur Barbiturates Screen (Not Detect) Ur Phencyclidine Scrn (Not Detect) Ur Amphetamines Screen (Not Detect) U Benzodiazepines Scrn (Not Detect) Urine Cocaine Screen (Not Detect) U Marijuana (THC) Screen (Not Detect) Ethyl Alcohol mg/dL 07/22/24 07/22/24 Range/Units 10:41 12:54 WBC (4.8-10.8) X10*3/uL RBC (4.60-5.80) X10*6/uL Hgb (14.0-18.0) g/dl Hct (42.0-52.0) % MCV (80.0-98.0) fL MCH (27.0-33.0) pg MCHC (31.0-36.0) g/dl RDW (11.0-16.0) % Plt Count (160-400) X10*3/uL MPV (9.4-12.4) fL Immature Gran % (Auto) (0.0-0.4) % Neut % (Auto) (45-73) % Lymph % (Auto) (20-40) % [place] % (Auto) (2-11) % Eos % (Auto) (0-4) % Baso % (Auto) (0-2) % Lymph # (Auto) (1.2-4.9) X10*3/uL [place] # (Auto) (0.1-1.2) X10*3/uL Eos # (Auto) (0.0-0.4) X10*3/uL Baso # (Auto) (0.0-0.2) X10*3/uL Abs Immat Gran (auto) (0.00-0.03) X10*3/uL Absolute Neuts (auto) (2.0-8.3) x10*3/uL Absolute Nucleated RBC (0.0-0.012) X10*3/uL Nucleated RBC % (auto) (0.0-0.2) /100WBC Sodium (135-145) mmol/L Potassium (3.3-5.1) mmol/L Chloride (96-108) mmol/L Carbon Dioxide (22-29) mmol/L Anion Gap (12-20) BUN (9-16) mg/dL Creatinine (0.5-1.4) mg/dL Estim Creat Clear Calc Estimated GFR Random Glucose (60-115) mg/dL Calcium (8.4-10.2) mg/dL Magnesium (1.6-2.6) mg/dL Total Bilirubin (0.0-1.0) mg/dL Direct Bilirubin (0.0-0.5) mg/dL AST (5-37) U/L ALT (0-40) U/L Alkaline Phosphatase (39-117) U/L Total Protein (6.5-8.0) g/dL Albumin 4.4 (3.5-5.0) g/dL Urine Color Yellow Urine Appearance Clear Urine pH >= 9.0 (5.0-9.0) Ur Specific [place] 1.010 (1.005-1.025) Urine Protein Negative (Neg-Trace) mg/dL Urine Glucose (UA) Negative (Negative) mg/dL Urine Ketones Trace (Negative) mg/dL Urine Blood Negative (Negative) Urine Nitrite Negative (Negative) Ur Leukocyte Esterase Negative (Negative) Urine Opiates Screen Not Detected (Not Detect) Ur Buprenorphine Scrn Not Detected (Not Detect) ng/mL Ur Oxycodone Screen Not Detected (Not Detect) ng/mL Urine Methadone Screen Positive H (Not Detect) ng/mL Urine Fentanyl Screen Not Detected (Not Detect) Ur Barbiturates Screen Not Detected (Not Detect) Ur Phencyclidine Scrn Not Detected (Not Detect) Ur Amphetamines Screen Not Detected (Not Detect) U Benzodiazepines Scrn Not Detected (Not Detect) Urine Cocaine Screen Not Detected (Not Detect) U Marijuana (THC) Screen POSITIVE H (Not Detect) Ethyl Alcohol < 10 mg/dL Radiology Impression Discussion of test interpretation with radiology: I have reviewed the radiologist's reading. External Record Review External record reviewed: Inpatient record, Office record, Outpatient record, Prior outpatient labs, Prior outpatient radiology, Primary care record and Outside ED record Tests considered The following testing was considered but not selected: As above Discharge Plan Discharge Clinical Impression: Nausea & vomiting Patient Disposition: Home, Self-Care Instructions: Acute Nausea and Vomiting (DC) Additional Instructions: your blood work is reassuring. Maalox and Pepcid will help with acid reduction Zofran as an antinausea medication, take as needed for nausea and vomiting Practice a bland diet, avoid spicy foods, sweets, caffeine, chocolate Follow up with your doctor as well as Gastroenterology, call to make an appointment If you are unable to eat or drink have persistent nausea /vomiting, fever, abdominal pain return to the ED You were dose with methadone today, you are provided with last dose letter. Please follow up with your clinic for additional dosing Prescriptions: New alum-mag hydroxide-simeth [Maalox Advanced] 200-200-20 mg/5 mL suspension 5 ml PO 5XD PRN (Reason: dyspepsia) Qty: 30 0RF Rx Instructions: administer between meals and at bedtime famotidine [Pepcid] 20 mg tablet 20 mg PO DAILY Qty: 14 0RF ondansetron 4 mg tablet,disintegrating 4 mg PO Q8H PRN (Reason: nausea and vomiting) Qty: 10 0RF No Action famotidine 20 mg tablet 20 mg PO BEDTIME 30 Days Qty: 30 0RF ondansetron 4 mg tablet,disintegrating 4 mg PO Q8H PRN (Reason: nausea and vomiting) Qty: 4 0RF Referrals: [facility] [Provider Group] - 5 days Interventions: ED Discharge Assessment Last Done: 07/22/24 15:07 Discharge Date/Time: 07/22/24 15:08 Print Language: [place] Citizen
[2024-07-22 10:22] VITALS: BMI 42.3
[2024-07-22 10:46] LABS: MANUAL DIFF FLAG NO
[2024-07-22 10:50] LABS: Basophils Percent Auto 0.3 % (0-2); Eosinophils Absolute Auto 0.1 X10*3/uL (0.0-0.4); Eosinophils Percent Auto 0.7 % (0-4); Hematocrit 41.8 % (42.0-52.0); Hemoglobin 13.8 g/dl (14.0-18.0); Imm Gran Abs Auto 0.03 X10*3/uL (0.00-0.03); Imm Gran Pct Auto 0.4 % (0.0-0.4); Lymphocytes Absolute Auto 1.4 X10*3/uL (1.2-4.9); Mean Corpuscular Hemoglobin 25.8 pg (27.0-33.0); Mean Corpuscular Volume 78.1 fL (80.0-98.0); Mean Platelet Volume 8.9 fL (9.4-12.4); Monocytes Absolute Auto 0.5 X10*3/uL (0.1-1.2); Monocytes Percent Auto 7.5 % (2-11); Neutrophils Absolute Auto 4.8 x10*3/uL (2.0-8.3); Neutrophils Percent Auto 70.1 % (45-73); Platelet Count 210 X10*3/uL (160-400); Red Blood Count 5.35 X10*6/uL (4.60-5.80); Red Cell Distribution Width 14.1 % (11.0-16.0); White Blood Count 6.8 X10*3/uL (4.8-10.8)
[2024-07-22 11:02] LABS: Alanine Aminotransferase 76 U/L (0-40); Albumin Level 4.4 g/dL (3.5-5.0); Alkaline Phosphatase 79 U/L (39-117); Anion Gap 12 (12-20); Aspartate Amino Transferase 48 U/L (5-37); Bilirubin Total 0.4 mg/dL (0.0-1.0); Blood Urea Nitrogen 10 mg/dL (9-16); Calcium 9.5 mg/dL (8.4-10.2); Carbon Dioxide 28 mmol/L (22-29); Chloride 105 mmol/L (96-108); Estimated Glomerular Filt Rate > 60; Glucose Random 100 mg/dL (60-115); Potassium 3.9 mmol/L (3.3-5.1); Sodium 141 mmol/L (135-145); Total Protein 7.2 g/dL (6.5-8.0)
[2024-07-22 11:11] LABS: Alanine Aminotransferase 76 U/L (0-40); Albumin Level 4.4 g/dL (3.5-5.0); Alkaline Phosphatase 79 U/L (39-117); Aspartate Amino Transferase 46 U/L (5-37); Bilirubin Direct 0.2 mg/dL (0.0-0.5); Bilirubin Total 0.5 mg/dL (0.0-1.0); Ethanol < 10 mg/dL; Magnesium 2.1 mg/dL (1.6-2.6); Total Protein 7.1 g/dL (6.5-8.0)
[2024-07-22] MEDS: ondansetron HCL 4 MG/2 ML VIAL IVPUSH (11:24)
[2024-07-22] MEDS: 0.9 % Sodium Chloride 1,000 ML 999 ML IV (11:25)
[2024-07-22 13:03] LABS: Appearance Urine Clear; Color Urine Yellow; Glucose Urine UA Negative (Negative); Leukocyte Esterase Urine Negative (Negative); Nitrite Urine Negative (Negative); PH >= 9.0 (5.0-9.0); Urine Blood Negative (Negative); Urine Ketones Trace mg/dL (Negative); Urine Protein Negative (Neg-Trace)
[2024-07-22 13:13] LABS: Amphetamine Screen Urine Not Detected (Not Detect); Barbiturates, Urine Not Detected (Not Detect); Benzodiazepines Screen Urine Not Detected (Not Detect); Buprenorphine Scr Not Detected (Not Detect); Cannabinoid Screen Urine POSITIVE (Not Detect); Cocaine Screen Urine Not Detected (Not Detect); Fentanyl, urine Not Detected (Not Detect); Methadone Screen, Urine Positive (Not Detect); Opiate Screen Urine Not Detected (Not Detect); Oxycodone Screen Urine Not Detected (Not Detect); Phencyclidine Screen Urine Not Detected (Not Detect)
--- NOTE | 2024-07-22 13:46 | HE.PHANOTE ---
Methadone verified [facility] [address] last dose given 103 mg 07/18/24 with 3 take home doses provided
[2024-07-22 14:44] VITALS: BP 112/64; PULSE 82; RESP 18; TEMP 36.7; O2SAT 97
[2024-07-22] MEDS: methADONE HCl 20 MG/2 ML ORAL.CONC 103 MG PO (14:55)
[2024-07-22] MEDS: Magnesium Hydrox/Alum Hydrox 30 ML ORAL.SUSP PO (14:57)
[2024-07-22 15:07] VITALS: BP 112/64; PULSE 82; RESP 18; TEMP 36.7; O2SAT 97
== END 2024-07-22 15:08 | disposition home or self-care (01) ==
PROVIDERS: Physician Assistant; Emergency Provider Emergency Medicine Emergency Medical Services
DX: R11.2 Nausea with vomiting, unspecified (principal); F12.90 Cannabis use, unspecified, uncomplicated; Z79.891 Long term (current) use of opiate analgesic; Z79.899 Other long term (current) drug therapy; Z51.81 Encounter for therapeutic drug level monitoring
CPT/HCPCS: 36415; 80053; 80076; 80307; 81003; 82248; 83735; 85025; 96361; 96374; 99283; 99284; J2405